=== PATIENT | male | born 1955 | race Caucasian/White ===

== ENCOUNTER 2024-11-18 02:46 | Emergency (ER) | payer MEDICARE, OTHER ==
[~2024-11-18] VITALS: Ht 182.9 cm; Wt 86.0 kg
[2024-11-18] MEDS ORDERED: ZESTRIL10 MG PO (03:00)
[2024-11-18] MEDS ORDERED: LIPITOR10 MG (03:00)
[2024-11-18] MEDS ORDERED: FAMOTIDINE 20 MG/ 2 ML VIAL IV ONE ×2 (03:00→04:00)
[2024-11-18] MEDS ORDERED: AMP/SULBACTAM SOD 3 GM in SODIUM CHLORIDE 0.9% 100 ML IV ONE (03:00)
[2024-11-18] MEDS ORDERED: DEXAMETHASONE SOD PHOS 10 MG/ML VIAL IV ONE (03:00)
[2024-11-18 03:04] LABS: BASOPHILS 0.8 % (0.2-1.2); EOSINOPHILS 2.8 % (0.8-7.0); LYMPHOCYTES 22.1 % (21.8-53.1); MCH 32.3 PG (25.7-32.2); MCHC 32.4 g/dL (32.3-36.5); MCV 99.5 fL (79.0-92.2); MONOCYTES 12.3 % (5.3-12.2); NEUTROPHILS 61.6 % (34.0-67.9); RBC 4.15 M/uL (4.63-6.08)
[2024-11-18 03:15] LABS: ALT (SGPT) 35.0 U/L (14-59); AST (SGOT) 24.0 U/L (15-37); GLOMERULAR FILTRATION RATE,EST 65.0 mL/min (>60); PROTEIN, TOTAL 7.4 g/dL (6.4-8.2); UREA NITROGEN 20.0 mg/dL (7-18)
[2024-11-18 03:50] LABS: LACTIC ACID, BLOOD 0.5 mmol/L (0.4-2.0)
[2024-11-18] MEDS ORDERED: LACTATED RINGER'S 1,000 ML IV ONE (04:00)
[2024-11-18] MEDS ORDERED: AMOX TR-K CLV1 EAC1 PO (05:23)
[2024-11-18 05:28] VITALS: BP 169/89
== END 2024-11-18 05:28 | disposition home or self-care (01) ==
LOC: ED 02:46
PROVIDERS: Internal Medicine
DX: K11.20 Sialoadenitis, unspecified (principal); I10 Essential (primary) hypertension; Z79.899 Other long term (current) drug therapy
CPT/HCPCS: 36415; 70491; 80053; 83605; 85025; 96365; 96375; 99285-25; J0295; J1100; J1200; Q9967